=== PATIENT | male | born 1975 | race Caucasian/White ===

== ENCOUNTER 2025-03-07 08:09 | Outpatient (CLI) | payer MEDICAID ==
--- NOTE | 2025-03-07 09:52 | RADIOLOGY REPORT ---
Procedure: MR MRI LOWER EXTREMITY RIGHT 03/07/2025 08:36 AM INDICATION: PAIN IN R KNEE COMPARISON: None TECHNIQUE: MRI was performed utilizing multiple appropriate imaging planes and pulse sequences. FINDINGS: Medial meniscus: Unremarkable. Lateral meniscus: Unremarkable. Anterior cruciate ligament: Unremarkable. Posterior cruciate ligament: Unremarkable. Medial collateral ligament: Mild thickening and signal alteration reflecting chronic sprain. Lateral stabilizers: Unremarkable. Extensor mechanism: Unremarkable. Pes anserine Tendons: Unremarkable. Medial compartment: Unremarkable. Lateral compartment: Unremarkable. Patellofemoral compartment: Mild lateral patellar tilt without translation. Grade 2 chondromalacia p atella. Edema in superior -lateral Hoffa's fat pad reflecting impingement syndrome. Evidence of [place] Schlatter disease with old partially united tibial tuberosity avulsion. A 1.5 x 1.4 cm loose body noted in the suprapatellar space between lateral patellar facet and distal femur. Bones: No suspicious lesion. Joint Effusion: None. Popliteal fossa: No Robbins's cyst. Other: None. IMPRESSION: 1. 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 A 1.5 cm loose body noted in the suprapatellar space. No significant joint effusion. 2. Chronic MCL sprain.
== END 2025-03-07 23:59 | disposition home or self-care (01) ==
LOC: MRI02 08:09
PROVIDERS: ATTEND Nurse Practitioner Family
DX: S83.411A Sprain of medial collateral ligament of right knee, initial encounter (principal); M22.42 Chondromalacia patellae, left knee; M92.521 Juvenile osteochondrosis of tibia tubercle, right leg; M25.561 Pain in right knee; S83.001A Unspecified subluxation of right patella, initial encounter; X58.XXXA Exposure to other specified factors, initial encounter; Y93.89 Activity, other specified; Y92.89 Other specified places as the place of occurrence of the external cause; Y99.8 Other external cause status
CPT/HCPCS: 73721

== ENCOUNTER 2025-04-27 12:27 | Outpatient (CLI) | payer MEDICAID ==
--- NOTE | 2025-04-27 16:36 | RADIOLOGY REPORT ---
PROCEDURE: MR MRI HEAD INDICATION: OTHER AMNESIA EXAM DATE: 04/27/2025 12:55 PM COMPARISON: None TECHNIQUE: MRI of the brain without intravenous contrast. FINDINGS: Diffusion weighted images of the brain demonstrate no evidence of acute infarction. There is no evidence of acute intracranial hemorrhage, extra-axial collection, mass effect, midline s hift, herniation or hydrocephalus. The ventricles, sulci and cisterns appear age appropriate. Mild changes of chronic microvascular ischemic disease. No hippocampal atrophy. There are no signal abnormalities on the susceptibility weighted sequences. The major vascular flow voids are present. The visualized paranasal sinuses and mastoid air cells are clear. The surrounding soft tissues and o sseous structures are unremarkable. IMPRESSION: 1. No evidence of acute infarction, intracranial hemorrhage, mass effect or hydrocephalus. Mild quiñonez es of chronic microvascular ischemic disease. No hippocampal atrophy. HS:Y
== END 2025-04-27 23:59 | disposition home or self-care (01) ==
LOC: MRI 12:27
PROVIDERS: ATTEND Neuromusculoskeletal Medicine & OMM
DX: I67.89 Other cerebrovascular disease (principal); R41.3 Other amnesia
CPT/HCPCS: 70551